=== PATIENT | female | born 1975 | race Two or more races ===

== ENCOUNTER 2022-12-23 18:35 | Inpatient (IN) | payer MEDICAID, OTHER ==
[~2022-12-23] VITALS: Ht 165.1 cm; Wt 84.0 kg
[2022-12-23 19:17] LABS: Hemoglobin 12.7 g/dL (12.2-16.2)
[2022-12-23 19:24] LABS: Hematocrit 37.3 % (36.0-46.0); Mean Corpuscular Hemoglobin 29.9 pg (28.0-32.0); Red Blood Cells 4.24 10^6/uL (4.0-5.20); Red Cell Distribution Width 15.4 % (11.8-14.3); White Blood Cell 7.8 10^3/uL (4.4-10.8)
[2022-12-23 19:27] LABS: Band Neutrophils % (manual) 0; Basophils % (manual) 0 (0.0-2.0); Blast Cells 0; Eosinophils % (manual) 0 (0-7); Metamyelocytes % 0; Myelocytes % 0; Promyelocytes % 0; Reactive Lymphocytes 0
[2022-12-23 19:37] LABS: Alanine Aminotransferase 129 U/L (7-40); Albumin 3.6 g/dL (3.2-4.8); Alkaline Phosphatase 144 U/L (46-116); Anion Gap 9 (5-15); Aspartate Aminotransferase 107 U/L (13-40); BUN/Creatinine Ratio 14.3 (10.0-20.0); Bilirubin, Total 0.7 mg/dL (0.2-1.0); Blood Urea Nitrogen 8 mg/dL (9-23); Calcium 7.9 mg/dL (8.7-10.4); Carbon Dioxide 23 mmol/L (20-30); Chloride 103 mmol/L (98-107); Glucose 151 mg/dL (74-106); Potassium 3.6 mmol/L (3.5-5.1); Sodium 135 mmol/L (136-145); Total Protein 6.2 g/dL (5.7-8.2)
[2022-12-23] MEDS ORDERED: ACETAMINOPHEN 325 MG TAB PO ONE (20:45)
[2022-12-23] MEDS ORDERED: LIDOCAINE VISCOUS 2% 15ML UD PO ONE (20:45)
[2022-12-23] MEDS ORDERED: PANTOPRAZOLE 40 MG/10 ML VIAL INJ IV ONE (20:45)
[2022-12-23] MEDS ORDERED: MAALOX PLUS or MAALOX 30 ML PO ONE (20:45)
[2022-12-23] MEDS ORDERED: DONNATAL 5ml ORAL Elix (BELLADONNA ALK-PHENOBARB) PO ONE (20:45)
[2022-12-23] MEDS ORDERED: LORazepam 2MG/ML-1ML VIAL IV ONE (20:45)
[2022-12-23] MEDS ORDERED: SODIUM CHLORIDE 0.9% 1,000 ML IVB ONE (20:45)
[2022-12-23] MEDS ORDERED: ONDANSETRON HCL 4 MG/2 ML VIAL IV ONE (20:45)
[2022-12-23 21:31] LABS: Anisocytosis Slight; INR 1.09 (0.9-1.15); Lymphocytes % (manual) 19 (10.0-50.0); Monocytes % (manual) 12 (0-12); Partial Thromboplastin Time 25.6 SEC (24.5-34.5); Platelet Estimate Adequate; Prothrombin Time 11.4 sec (9.3-11.8); Tear Drop Cells FEW
[2022-12-23 21:45] LABS: Lipase 75 U/L (12-53)
[2022-12-23 21:46] LABS: Blood Alcohol < 3.0 mg/dL (<10); Magnesium 1.8 mg/dL (1.6-2.6)
[2022-12-23 21:47] LABS: Acetaminophen < 2.0 UG/ML (10.0-20.0); Salicylate 3.1 mg/dL (2.8-20.0)
[2022-12-23] MEDS: ASPirin 81 mg TAB PO ONE ×2 (22:31→22:44)
[2022-12-24] VITALS (8 sets, daily range): BP systolic 90–118; BP diastolic 55–76; PULSE 67–93; RESP 15–22; TEMP 98.1–98.3; O2SAT 94–100
[2022-12-24] MEDS ORDERED: PIPERACILLIN-TAZOB 3.375GM 100 ML IV ONE (01:00)
[2022-12-24] MEDS ORDERED: SODIUM CHLORIDE 0.9% 1,000 ML IV ONE (01:00)
[2022-12-24 02:46] LABS: COVID19 ANTIGEN SOFIA FIA NEGATIVE (NEGATIVE)
[2022-12-24 03:34] LABS: Urine Bacteria MANY /hpf (None Seen); Urine Blood TRACE /uL (Negative); Urine Clarity Clear (Clear); Urine Color Yellow (Yellow); Urine Protein, UAD TRACE (Negative); Urine Urobilinogen Normal (Negative); Urine WBC 7 /hpf (0 - 5)
[2022-12-24 04:04] LABS: Amphetamine Screen, Urine Neg (NEGATIVE); Barbiturate Scree,Urine Neg (NEGATIVE); Benzodiazephine Screen, Urine Neg (NEGATIVE); Cannabinoid Screen, Urine Neg (NEGATIVE); Cocaine Screen, Urine Neg (NEGATIVE); Opiate Scree,Urine Neg (NEGATIVE); Phencyclidine Screen, Urine Neg (NEGATIVE)
[2022-12-24] MEDS ORDERED: MORPHINE SULFATE INJ 2 MG/ml SYRG IV PRN (06:15)
[2022-12-24] MEDS ORDERED: NITROGLYCERIN 0.4 MG SL TAB SL PRN (06:15)
[2022-12-24] MEDS ORDERED: DEXTROSE (50%) 50ML SYRG IV PRN (06:15)
[2022-12-24] MEDS ORDERED: ONDANSETRON HCL 4 MG/2 ML VIAL IV PRN (06:15)
[2022-12-24] MEDS: ACCU-CHEK COMFORT CURVE STRIP VI SCH ×4 (06:36→22:25)
[2022-12-24] MEDS: InsuLIN REG 1unit/0.01ml Soln (100units/ml) SC SCH ×4 (06:36→22:00)
[2022-12-24 08:26] LABS: LDL Cholesterol 104 mg/dL (< 100); Triglycerides 188 mg/dL (< 150)
[2022-12-24 08:28] LABS: Cholesterol 163 mg/dL (< 200); HDL Cholesterol 34 mg/dL (40-59)
[2022-12-24] MEDS: cefTRIAXone 1GM/50ML D5W 50 ML IV SCH (09:36)
[2022-12-24] MEDS: ASPirin 81 mg TAB PO SCH (10:00)
[2022-12-24] MEDS: MAGNESIUM SULFATE 1GM/100ML 100 ML IV SCH ×2 (14:12→15:47)
[2022-12-24] MEDS: METOPROLOL SUCCINATE XL 50 MG TAB PO SCH (14:13)
[2022-12-24] MEDS ORDERED: ACETAMINOPHEN 325 MG TAB PO PRN (16:30)
[2022-12-24] MEDS ORDERED: ATORVASTATIN 20 MG TAB PO SCH (22:00)
[2022-12-25] VITALS (8 sets, daily range): BP systolic 95–144; BP diastolic 45–82; PULSE 64–76; RESP 15–19; TEMP 97.5–98.1; O2SAT 94–100
[2022-12-25] MEDS: ACCU-CHEK COMFORT CURVE STRIP VI SCH ×4 (06:28→22:18)
[2022-12-25] MEDS: InsuLIN REG 1unit/0.01ml Soln (100units/ml) SC SCH ×4 (06:28→22:00)
[2022-12-25 07:11] LABS: Alanine Aminotransferase 93 U/L (7-40); Albumin 3.5 g/dL (3.2-4.8); Alkaline Phosphatase 130 U/L (46-116); Anion Gap 8 (5-15); Aspartate Aminotransferase 83 U/L (13-40); BUN/Creatinine Ratio 9.4 (10.0-20.0); Blood Urea Nitrogen 6 mg/dL (9-23); Calcium 8.3 mg/dL (8.7-10.4); Carbon Dioxide 25 mmol/L (20-30); Chloride 103 mmol/L (98-107); Glucose 193 mg/dL (74-106); Potassium 4.1 mmol/L (3.5-5.1); Sodium 136 mmol/L (136-145)
[2022-12-25 07:12] LABS: Bilirubin, Total 0.9 mg/dL (0.2-1.0)
[2022-12-25] MEDS ORDERED: ADENOSINE 67 MG in GIVE UN-DILUTED 0 ML IV ONE (07:45)
[2022-12-25] MEDS: cefTRIAXone 1GM/50ML D5W 50 ML IV SCH (09:54)
[2022-12-25] MEDS: METOPROLOL SUCCINATE XL 50 MG TAB PO SCH (09:54)
[2022-12-25] MEDS: ASPirin 81 mg TAB PO SCH (10:05)
[2022-12-26] MEDS: cefTRIAXone 1GM/50ML D5W 50 ML IV SCH (09:00)
[2022-12-26] MEDS: METOPROLOL SUCCINATE XL 50 MG TAB PO SCH (10:00)
[2022-12-26] MEDS: ASPirin 81 mg TAB PO SCH (10:00)
[2022-12-26] MEDS ORDERED: ADENOSINE 69 MG in GIVE UN-DILUTED 0 ML IV ONE (11:15)
[2022-12-26] MEDS: ACCU-CHEK COMFORT CURVE STRIP VI SCH ×2 (11:30→17:00)
[2022-12-26 16:00] VITALS: BP 114/68; PULSE 70; RESP 18; TEMP 94.9; O2SAT 96
[2022-12-26 20:05] VITALS: PULSE 79; RESP 16
[2022-12-26 22:00] VITALS: BP 115/73; PULSE 73; RESP 18; TEMP 97.6; O2SAT 95
[2022-12-27 05:00] VITALS: BP 110/72; PULSE 75; RESP 17; TEMP 98.5; O2SAT 94
[2022-12-27] MEDS: ACCU-CHEK COMFORT CURVE STRIP VI SCH ×4 (06:09→16:53)
[2022-12-27 08:00] VITALS: PULSE 62; PULSE 78; RESP 18
[2022-12-27] MEDS: cefTRIAXone 1GM/50ML D5W 50 ML IV SCH (08:46)
[2022-12-27 09:14] VITALS: BP 107/69; PULSE 61; RESP 20; TEMP 98.7; O2SAT 95
[2022-12-27] MEDS: ASPirin 81 mg TAB PO SCH (09:42)
[2022-12-27] MEDS: METOPROLOL SUCCINATE XL 50 MG TAB PO SCH (09:44)
[2022-12-27 13:00] VITALS: BP 116/82; PULSE 74; RESP 19; TEMP 98.3; O2SAT 95
[2022-12-27] MEDS ORDERED: ESCI5TAB PO (13:18)
[2022-12-27] MEDS ORDERED: METF-370 PO (13:18)
== END 2022-12-27 18:34 | disposition home or self-care (01) | DRG 207 ==
LOC: EDBD 18:35 → ER 18:35 → TELE 12-24 06:12 → TELE-WESTW 12-24 15:17
PROVIDERS: ADMIT Nurse Practitioner; ATTEND Nurse Practitioner Acute Care
DX: R00.2 Palpitations (principal); E11.9 Type 2 diabetes mellitus without complications; R07.9 Chest pain, unspecified; E66.9 Obesity, unspecified; N39.0 Urinary tract infection, site not specified; I49.3 Ventricular premature depolarization; F41.9 Anxiety disorder, unspecified; E78.5 Hyperlipidemia, unspecified; I10 Essential (primary) hypertension; R79.89 Other specified abnormal findings of blood chemistry; Z20.822 Contact with and (suspected) exposure to COVID-19; F32.A Depression, unspecified; R74.8 Abnormal levels of other serum enzymes; Z56.0 Unemployment, unspecified; Z68.30 Body mass index [BMI] 30.0-30.9, adult; Z79.899 Other long term (current) drug therapy; Z91.148 Patient's other noncompliance with medication regimen for other reason
CPT/HCPCS: 36415; 70450; 71045; 71275; 76705; 78452; 80053; 80061; 80307; 80320; 80329; 81001; 82962; 83036; 83605; 83690; 83735; 83880; 84443; 84484; 84702; 85007; 85027; 85379; 85610; 85730; 86850; 86900; 86901; 87040; 87086; 87426; 93005; 93017; 93306; C9113; G0378; J0153; J0696; J2405; J2543

== ENCOUNTER 2023-05-24 16:24 | Inpatient (IN) | payer MEDICAID ==
[~2023-05-24] VITALS: Ht 165.1 cm; Wt 86.3 kg
[~2023-05-24 16:24] MED LIST: ESCI5TAB PO; METF-370 PO
[2023-05-24] MEDS ORDERED: SODIUM CHLORIDE 0.9% 1,000 ML IV ONE ×2 (16:45)
[2023-05-24 17:37] LABS: Basophils # (auto) 0 10 ^3/uL (0-0.2); Basophils % (auto) 0.2 % (0.0-2.0); Eosinophils # (auto) 0 10 ^3/uL (0-0.8); Eosinophils % (auto) 0.2 % (0.0-7.0); Hemoglobin 12.3 g/dL (12.2-16.2); Lymphocytes # (auto) 1.2 10 ^3/uL (0.4-5.4); Lymphocytes % (auto) 8.4 % (10.0-50.0); Mean Corpuscular Hemoglobin 27.4 pg (28.0-32.0); Mean Corpuscular Hgb Conc. 33.3 g/dL (32.0-36.0); Mean Corpuscular Volume 82.1 fL (80.0-100.0); Monocytes # (auto) 0.3 10 ^3/uL (0-1.3); Neutrophils # (auto) 12.5 10 ^3/uL (1.6-8.6); Neutrophils % (auto) 89.2 % (37.0-80.0); Nucleated Red Blood Cells % 0.1 %; Red Blood Cells 4.51 10^6/uL (4.0-5.20); Red Cell Distribution Width 13.6 % (11.8-14.3)
[2023-05-24 17:50] VITALS: PULSE 103; RESP 17; O2SAT 93
[2023-05-24 17:50] LABS: INR 1.03 (0.9-1.15); Prothrombin Time 10.8 sec (9.3-11.8)
[2023-05-24 17:55] LABS: Alanine Aminotransferase 34 U/L (7-40); Albumin 3.5 g/dL (3.2-4.8); Alkaline Phosphatase 129 U/L (46-116); Anion Gap 20 (5-15); Aspartate Aminotransferase 33 U/L (13-40); BUN/Creatinine Ratio 8.5 (10.0-20.0); Bilirubin, Total 1.1 mg/dL (0.2-1.0); Blood Urea Nitrogen 30 mg/dL (9-23); Calcium 8.7 mg/dL (8.7-10.4); Carbon Dioxide 20 mmol/L (20-30); Chloride 78 mmol/L (98-107); Glucose 339 mg/dL (74-106); Lipase 190 U/L (12-53); Potassium 2.8 mmol/L (3.5-5.1); Total Protein 7.2 g/dL (5.7-8.2)
[2023-05-24 17:57] LABS: Sodium 118 mmol/L (136-145)
[2023-05-24] MEDS: LACTATED RINGER'S 1,000 ML IV ONE (18:09)
[2023-05-24 19:46] LABS: Base Excess -2.4 mmol/L (-2.0-2.0)
[2023-05-24 20:03] LABS: Lactic Acid w/Reflex 9.5 mmol/L (0.4-2.0)
[2023-05-24] MEDS: PIPERACILLIN-TAZO 4.5GM 100 ML IV ONE (20:24)
[2023-05-24] MEDS: SODIUM CHLORIDE 0.9% 1,000 ML IV ONE (20:28)
[2023-05-24] MEDS: NOREPINEPHRINE 8 MG/250ML KIT 250 ML IV SCH (20:29)
[2023-05-24] MEDS: VANCOMYCIN 1GM/200ML 200 ML IV ONE (21:04)
[2023-05-24] MEDS ORDERED: ACETAMINOPHEN 325 MG TAB PO PRN (21:30)
[2023-05-24] MEDS ORDERED: DEXTROSE (50%) 50ML SYRG IV PRN (21:30)
[2023-05-24] MEDS ORDERED: VANCOMYCIN PER PHARMACY 0 MG IV SCH (21:30)
[2023-05-24] MEDS ORDERED: ONDANSETRON HCL 4 MG/2 ML VIAL IV PRN (21:30)
[2023-05-24] MEDS ORDERED: DOCUSATE SOD 100 MG CAP PO PRN (21:30)
[2023-05-24] MEDS ORDERED: HYDROcodone-ACET 5/325MG TAB PO PRN (21:30)
[2023-05-24 21:39] VITALS: PULSE 100; RESP 19; O2SAT 92
[2023-05-24] MEDS: SODIUM CHLORIDE 0.9% 1,000 ML IV SCH (21:49)
[2023-05-24 21:50] LABS: Urine Bacteria MANY /hpf (None Seen); Urine Blood 1+ /uL (Negative); Urine Clarity HAZY (Clear); Urine Color Yellow (Yellow); Urine Mucus FEW (None Seen); Urine Protein, UAD TRACE (Negative); Urine Specific Gravity 1.021 (1.001-1.035); Urine WBC 28 /hpf (0 - 5)
[2023-05-24] MEDS: POTASSIUM CHL 20MEQ/100ML 100 ML IV SCH (21:54)
[2023-05-24 21:59] LABS: Amphetamine Screen, Urine Neg (NEGATIVE); Barbiturate Scree,Urine Neg (NEGATIVE); Benzodiazephine Screen, Urine Neg (NEGATIVE); Cannabinoid Screen, Urine Neg (NEGATIVE); Cocaine Screen, Urine Neg (NEGATIVE); Opiate Scree,Urine Neg (NEGATIVE); Phencyclidine Screen, Urine Neg (NEGATIVE)
[2023-05-24] MEDS: LACTULOSE 20Gm/30ML SOLN PO SCH (22:55)
[2023-05-24] MEDS ORDERED: MORPHINE SULFATE INJ 2 MG/ml SYRG IV PRN (23:30)
[2023-05-24] MEDS ORDERED: NITROGLYCERIN 0.4 MG SL TAB SL PRN (23:30)
[2023-05-25] MEDS: InsuLIN REG 1unit/0.01ml Soln (100units/ml) SC SCH
[2023-05-25] MEDS: ACCU-CHEK COMFORT CURVE STRIP VI SCH
[2023-05-25 00:58] LABS: Anion Gap 12 (5-15); Carbon Dioxide 13 mmol/L (20-30)
[2023-05-25 01:03] LABS: Glucose 211 mg/dL (74-106)
[2023-05-25 01:04] LABS: BUN/Creatinine Ratio 16.7 (10.0-20.0); Blood Urea Nitrogen 31 mg/dL (9-23)
[2023-05-25 01:05] LABS: Chloride 103 mmol/L (98-107); Sodium 128 mmol/L (136-145)
[2023-05-25 01:07] LABS: Calcium 5.5 mg/dL (8.7-10.4); Potassium 6.3 mmol/L (3.5-5.1)
[2023-05-25] MEDS: SODIUM ZIRCONIUM CYCL 10 GM PAK PO ONE (03:58)
[2023-05-25] MEDS: SODIUM BICARB 8.4% 50Meq/50ml SYR INJ IV ONE (03:59)
[2023-05-25] MEDS: InsuLIN REG 1unit/0.01ml Soln (100units/ml) IV ONE (04:06)
[2023-05-25] MEDS: CALCIUM GLUC 1,000mg/50ml-NS 50 ML IV SCH (04:10)
[2023-05-25 04:43] LABS: Basophils # (auto) 0 10 ^3/uL (0-0.2); Basophils % (auto) 0.3 % (0.0-2.0); Eosinophils # (auto) 0 10 ^3/uL (0-0.8); Lymphocytes # (auto) 0.6 10 ^3/uL (0.4-5.4); Mean Corpuscular Hgb Conc. 33.5 g/dL (32.0-36.0)
[2023-05-25 04:45] LABS: Hematocrit 24.5 % (36.0-46.0); Hemoglobin 8.2 g/dL (12.2-16.2); Lymphocytes % (auto) 4.1 % (10.0-50.0); Mean Corpuscular Hemoglobin 27.6 pg (28.0-32.0); Mean Corpuscular Volume 82.3 fL (80.0-100.0); Monocytes # (auto) 0.4 10 ^3/uL (0-1.3); Monocytes % (auto) 2.4 % (0.0-12.0); Neutrophils # (auto) 13.7 10 ^3/uL (1.6-8.6); Neutrophils % (auto) 93.2 % (37.0-80.0); Red Blood Cells 2.97 10^6/uL (4.0-5.20); Red Cell Distribution Width 13.5 % (11.8-14.3); White Blood Cell 14.7 10^3/uL (4.4-10.8)
[2023-05-25 05:02] LABS: Alanine Aminotransferase 26 U/L (7-40); Albumin 2.1 g/dL (3.2-4.8); Alkaline Phosphatase 80 U/L (46-116); Anion Gap 16 (5-15); Aspartate Aminotransferase 31 U/L (13-40); BUN/Creatinine Ratio 17.3 (10.0-20.0); Bilirubin, Total 0.7 mg/dL (0.2-1.0); Blood Urea Nitrogen 28 mg/dL (9-23); Calcium 7.9 mg/dL (8.7-10.4); Carbon Dioxide 16 mmol/L (20-30); Chloride 103 mmol/L (98-107); Glucose 179 mg/dL (74-106); Total Protein 4.2 g/dL (5.7-8.2)
[2023-05-25 05:35] LABS: Sodium 135 mmol/L (136-145)
[2023-05-25 05:37] LABS: Potassium 2.3 mmol/L (3.5-5.1)
[2023-05-25] MEDS: POTASSIUM CHL 20MEQ/100ML 100 ML IV ONE (06:00)
[2023-05-25] MEDS: POTASSIUM EFFERVESENT TAB 25 MEQ PO ONE (06:00)
[2023-05-25] MEDS: cefTRIAXone 1GM/50ML D5W 50 ML IV SCH (09:00)
[2023-05-25] MEDS: MAGNESIUM SULFATE 1GM/100ML 100 ML IV ONE (09:30)
[2023-05-25 09:32] LABS: Triglycerides 290 mg/dL (< 150)
[2023-05-25 09:33] LABS: Cholesterol 148 mg/dL (< 200); LDL Cholesterol 91 mg/dL (< 100)
[2023-05-25 09:34] LABS: HDL Cholesterol 18 mg/dL (40-59)
[2023-05-25] MEDS: VANCOMYCIN 1GM/200ML 200 ML IV SCH (10:00)
[2023-05-25 15:42] VITALS: PULSE 98; RESP 20; O2SAT 97
[2023-05-25 18:12] LABS: Chloride 98 mmol/L (98-107); Potassium 3.5 mmol/L (3.5-5.1); Sodium 131 mmol/L (136-145)
[2023-05-25 18:13] LABS: Anion Gap 13 (5-15); Carbon Dioxide 20 mmol/L (20-30)
[2023-05-25 18:18] LABS: BUN/Creatinine Ratio 20.7 (10.0-20.0); Blood Urea Nitrogen 29 mg/dL (9-23); Glucose 155 mg/dL (74-106)
[2023-05-25 19:30] VITALS: PULSE 104; RESP 19; O2SAT 95
[2023-05-25] MEDS: ATORVASTATIN 20 MG TAB PO SCH (22:00)
[2023-05-26 06:43] LABS: Anion Gap 24 (5-15); Carbon Dioxide 11 mmol/L (20-30); Chloride 100 mmol/L (98-107); Sodium 135 mmol/L (136-145)
[2023-05-26 06:49] LABS: Blood Urea Nitrogen 28 mg/dL (9-23); Glucose 201 mg/dL (74-106)
[2023-05-26 08:30] VITALS: PULSE 20; RESP 20; O2SAT 95
[2023-05-26] MEDS: SODIUM BICARB 50mEq/50ml Vial 75 ML in SOD CHL 0.45% 1,000 ML IV SCH (10:15)
[2023-05-26 16:17] LABS: White Blood Cell 27.9 10^3/uL (4.4-10.8)
[2023-05-26 16:18] LABS: Hematocrit 31.5 % (36.0-46.0); Hemoglobin 9.9 g/dL (12.2-16.2); Mean Corpuscular Hemoglobin 27.4 pg (28.0-32.0); Mean Corpuscular Hgb Conc. 31.3 g/dL (32.0-36.0); Mean Corpuscular Volume 87.4 fL (80.0-100.0); Red Cell Distribution Width 14.3 % (11.8-14.3)
[2023-05-26 16:19] LABS: Basophils % (manual) 0 (0.0-2.0); Blast Cells 0; Eosinophils % (manual) 0 (0-7); Metamyelocytes % 0; Myelocytes % 0; Promyelocytes % 0; Reactive Lymphocytes 0
[2023-05-26 16:39] LABS: Band Neutrophils % (manual) 15; Lymphocytes % (manual) 6 (10.0-50.0); Monocytes % (manual) 3 (0-12)
[2023-05-26 16:40] LABS: Anisocytosis Slight; Platelet Estimate Decreased
[2023-05-26] MEDS: VASOPRESSIN 20 UNITS in SODIUM CHL 0.9% 99 ML IV SCH (17:21)
[2023-05-26] MEDS ORDERED: CLINIMIX PER PHARMACY 0 ML IV SCH (18:30)
[2023-05-26 19:45] VITALS: PULSE 119; RESP 22; O2SAT 93
[2023-05-26] MEDS ORDERED: AMINO ACID INFUSION IN D10W 1,000 ML IV SCH (20:00)
[2023-05-26] MEDS: PHENYLEPHRINE IV 250 ML IV SCH (22:12)
[2023-05-26] MEDS: ACETAMINOPHEN 650 MG RECT SUPP PR PRN (22:13)
[2023-05-26] MEDS: AMINO ACID INFUSION IN D10W 1,000 ML IV SCH (23:10)
[2023-05-27] MEDS: VASOPRESSIN 20 UNIT/ML ONE (02:11)
[2023-05-27 07:30] VITALS: PULSE 119; RESP 22; O2SAT 93
[2023-05-27] MEDS: SODIUM CHLORIDE 0.9% 2,000 ML IV ONE (09:36)
[2023-05-27] MEDS: MEROPENEM 1GM IVPB 50 ML IV SCH (10:00)
[2023-05-27] MEDS ORDERED: OCTREOTIDE ACETATE 500 MCG in SODIUM CHL 0.9% 99 ML IV SCH (10:15)
[2023-05-27] MEDS ORDERED: OCTREOTIDE ACETATE 100 MCG in SODIUM CHL 0.9% 50 ML IV ONE (10:15)
[2023-05-27] MEDS: ALBUMIN 25% 50 ML IV SCH (10:15)
[2023-05-27] MEDS ORDERED: PANTOPRAZOLE 40mg/50ML NS AE 50 ML IV SCH (10:15)
[2023-05-27] MEDS ORDERED: PANTOPRAZOLE 80 MG in SODIUM CHL 0.9% 100 ML IV ONE (10:15)
[2023-05-27] MEDS ORDERED: DOPamine 1600MCG/ML D5W 250 ML IV SCH (10:15)
[2023-05-27 10:35] LABS: Alanine Aminotransferase 18 U/L (7-40); Albumin 1.6 g/dL (3.2-4.8); Alkaline Phosphatase 61 U/L (46-116); Anion Gap 16 (5-15); Aspartate Aminotransferase 32 U/L (13-40); BUN/Creatinine Ratio 27.1 (10.0-20.0); Blood Urea Nitrogen 16 mg/dL (9-23); Carbon Dioxide 11 mmol/L (20-30); Glucose 131 mg/dL (74-106); Triglycerides 215 mg/dL (< 150)
[2023-05-27] MEDS: DOPamine 1600MCG/ML D5W 250 ML IV SCH (10:35)
[2023-05-27 10:36] LABS: Bilirubin, Total 0.4 mg/dL (0.2-1.0); Phosphorus 2.3 mg/dL (2.4-5.1)
[2023-05-27 11:07] LABS: Chloride 119 mmol/L (98-107); Sodium 146 mmol/L (136-145)
[2023-05-27 11:09] LABS: Potassium 2.4 mmol/L (3.5-5.1)
[2023-05-27 11:10] LABS: Calcium 4.2 mg/dL (8.5-10.1)
[2023-05-27] MEDS ORDERED: INSULIN DRIP 100 UNIT/100ML 100 ML IV SCH (11:15)
[2023-05-27] MEDS ORDERED: DEXTROSE (50%) 50ML SYRG IV PRN (11:15)
[2023-05-27 11:21] LABS: Magnesium 1.3 mg/dL (1.6-2.6)
[2023-05-27 11:30] VITALS: BP 84/35; PULSE 82; RESP 19; TEMP 97.2; O2SAT 75
[2023-05-27] MEDS ORDERED: CALCIUM GLUC 1,000mg/50ml-NS 50 ML IV SCH ×2 (11:30→13:30)
[2023-05-27] MEDS ORDERED: POTASSIUM CHL 20MEQ/100ML 100 ML IV SCH (11:30)
[2023-05-27] MEDS ORDERED: MAGNESIUM SULFATE 1GM/100ML 100 ML IV SCH (16:00)
== END 2023-05-27 11:47 | DRG 720 ==
LOC: ER 16:24 → EDBD 16:24 → TELE 23:31
PROVIDERS: ADMIT Nurse Practitioner Family; ATTEND Internal Medicine
PROC: 05HB33Z Insertion of Infusion Device into Right Basilic Vein, Percutaneous Approach (ICD-10-PCS; principal; 2023-05-24)
PROC: B54MZZA Ultrasonography of Right Upper Extremity Veins, Guidance (ICD-10-PCS; 2023-05-24)
PROC: 06HY33Z Insertion of Infusion Device into Lower Vein, Percutaneous Approach (ICD-10-PCS; 2023-05-27)
DX: A41.9 Sepsis, unspecified organism (principal); N17.0 Acute kidney failure with tubular necrosis; R65.21 Severe sepsis with septic shock; G92.8 Other toxic encephalopathy; K92.2 Gastrointestinal hemorrhage, unspecified; E87.20 Acidosis, unspecified; E87.1 Hypo-osmolality and hyponatremia; E88.09 Other disorders of plasma-protein metabolism, not elsewhere classified; Z66 Do not resuscitate; E87.8 Other disorders of electrolyte and fluid balance, not elsewhere classified; E11.65 Type 2 diabetes mellitus with hyperglycemia; E78.5 Hyperlipidemia, unspecified; E66.9 Obesity, unspecified; F41.9 Anxiety disorder, unspecified; N39.0 Urinary tract infection, site not specified; F32.A Depression, unspecified; E87.6 Hypokalemia; I10 Essential (primary) hypertension; Z79.84 Long term (current) use of oral hypoglycemic drugs; Z91.199 Patient's noncompliance with other medical treatment and regimen due to unspecified reason; Z68.31 Body mass index [BMI] 31.0-31.9, adult
CPT/HCPCS: 36415; 36600; 70450; 71045; 74176; 76705; 80048; 80053; 80061; 80202; 80307; 81001; 82010; 82140; 82805; 82962; 83036; 83605; 83690; 83735; 83880; 84100; 84132; 84443; 84478; 84484; 84702; 85007; 85025; 85027; 85610; 86850; 86900; 86901; 87040; 87086; 87088; 87186; 93005; 96365; 99291; C9113; G0378; J1815; J2185; J2405; J2543; J3480